=== PATIENT | female | born 2000 | race Hispanic/Latino ===

== ENCOUNTER 2021-12-25 16:34 | Observation (INO) | payer OTHER, MEDICAID ==
[~2021-12-25] VITALS: Ht 160 cm; Wt 77.1 kg
[2021-12-25 16:36] VITALS: BP 126/81
[2021-12-25 17:30] LABS: APPEARANCE,URINE CLEAR (CLEAR); BILIRUBIN,URINE NEGATIVE (NEGATIVE); COLOR,URINE COLORLESS (YELLOW); GLUCOSE, URINE (UA) NEGATIVE (NEGATIVE); KETONES,URINE NEGATIVE (NEGATIVE); LEUKOCYTE ESTERASE ,URINE NEGATIVE Leu/uL (NEGATIVE); NITRATE,URINE NEGATIVE (NEGATIVE); PH,URINE 6.5 (5.0-8.0); PROTEIN,URINE NEGATIVE (NEGATIVE); UROBILINOGEN,URINE 0.2 mg/dL (0.2-1.0)
[2021-12-25 17:38] LABS: BACTERIA,URINE MANY /HPF (None Seen); RBC,URINE 0-1 /HPF (0-1); SQUAMOUS EPITHELIAL CELL,UR RARE /HPF (0-2)
== END 2021-12-25 18:30 | disposition home or self-care (01) ==
LOC: EDH 16:34 → LDH 16:35
PROVIDERS: ADMIT Obstetrics & Gynecology; ATTEND Obstetrics & Gynecology
DX: O12.03 Gestational edema, third trimester (principal); O26.893 Other specified pregnancy related conditions, third trimester; R51.9 Headache, unspecified; R10.9 Unspecified abdominal pain; H53.8 Other visual disturbances; O36.8130 Decreased fetal movements, third trimester, not applicable or unspecified; Z3A.34 34 weeks gestation of pregnancy
CPT/HCPCS: 59025; 81001; G0378 ×2; G0379

== ENCOUNTER 2022-01-08 22:53 | Observation (INO) | payer OTHER, MEDICAID ==
[~2022-01-08] VITALS: Ht 160 cm; Wt 77.6 kg
[2022-01-08 22:55] VITALS: BP 140/85
[2022-01-08 23:40] LABS: APPEARANCE,URINE CLEAR (CLEAR); BILIRUBIN,URINE NEGATIVE (NEGATIVE); COLOR,URINE COLORLESS (YELLOW); GLUCOSE, URINE (UA) NEGATIVE (NEGATIVE); KETONES,URINE 20 mg/dL (NEGATIVE); LEUKOCYTE ESTERASE ,URINE NEGATIVE Leu/uL (NEGATIVE); NITRATE,URINE NEGATIVE (NEGATIVE); OCCULT BLOOD,URINE NEGATIVE (NEGATIVE); PROTEIN,URINE NEGATIVE (NEGATIVE); UROBILINOGEN,URINE 0.2 mg/dL (0.2-1.0)
[2022-01-08 23:50] LABS: BASOPHILS % (AUTO) 0.3 % (0.0-5.0); EOSINOPHILS % (AUTO) 0.9 % (0.0-8.0); HEMATOCRIT 32.2 % (36-48); LYMPHOCYTES % (AUTO) 24.7 % (21.0-51.0); MEAN CORPUSCULAR HEMOGLOBIN 28.1 pg (27.0-33.0); MEAN CORPUSCULAR HGB CONC 33.2 g/dL (32.0-36.0); MEAN CORPUSCULAR VOLUME 84.5 fL (79-99); NEUTROPHILS % (AUTO) 65.5 % (40.0-77.0); PLATELET COUNT (AUTO) 229 K/uL (130-400); RED BLOOD CELL COUNT(AUTO) 3.81 MIL/uL (4.00-5.50); RED CELL DISTRIBUTION WIDTH 13.5 % (11.0-15.5); WHITE BLOOD COUNT (AUTO) 13.9 K/uL (4.8-10.8)
[2022-01-09 00:02] LABS: INR 0.93 (0.85-1.15); PROTHROMBIN TIME 9.8 SEC (9.6-11.6)
[2022-01-09 00:04] LABS: PARTIAL THROMBOPLASTIN TIME 29.3 SEC (26.3-35.5)
[2022-01-09 00:05] LABS: CREATININE 0.5 mg/dL (0.5-1.5); TOTAL PROTEIN, SERUM 6.7 g/dL (6.0-8.3)
== END 2022-01-09 01:30 | disposition home or self-care (01) ==
LOC: EDH 22:53 → LDH 22:54
PROVIDERS: ADMIT Obstetrics & Gynecology; ATTEND Obstetrics & Gynecology
DX: O26.893 Other specified pregnancy related conditions, third trimester (principal); R03.0 Elevated blood-pressure reading, without diagnosis of hypertension; R51.9 Headache, unspecified; O62.9 Abnormality of forces of labor, unspecified; Z3A.36 36 weeks gestation of pregnancy
CPT/HCPCS: 84550; 80053; 85025; 85384; 85610; 85730; 81003; 36415; G0378 ×2; G0379

== ENCOUNTER 2022-01-10 20:23 | Observation (INO) | payer OTHER, MEDICAID ==
[~2022-01-10] VITALS: Ht 160 cm; Wt 79.4 kg
[2022-01-10 20:25] VITALS: BP 138/91
[2022-01-10] MEDS ORDERED: ACETAMINOPHEN 500 MG TABLET PO SCH (21:30)
== END 2022-01-10 22:40 | disposition home or self-care (01) ==
LOC: EDH 20:23 → LDH 20:34
PROVIDERS: ADMIT Obstetrics & Gynecology; ATTEND Obstetrics & Gynecology
DX: O26.893 Other specified pregnancy related conditions, third trimester (principal); R51.9 Headache, unspecified; R03.0 Elevated blood-pressure reading, without diagnosis of hypertension; Z3A.36 36 weeks gestation of pregnancy
CPT/HCPCS: G0378 ×2; G0379

== ENCOUNTER 2022-01-24 06:27 | Inpatient (IN) | payer OTHER, MEDICAID ==
[~2022-01-24] VITALS: Ht 160 cm; Wt 78.9 kg
[2022-01-24] MEDS: OXYTOCIN-LR 20 UNITS/1000 ML 1,000 ML IV SCH (07:00)
[2022-01-24 07:37] LABS: HEMATOCRIT 33.3 % (36-48); MEAN CORPUSCULAR HEMOGLOBIN 28.2 pg (27.0-33.0); MEAN CORPUSCULAR HGB CONC 32.4 g/dL (32.0-36.0); MEAN CORPUSCULAR VOLUME 86.9 fL (79-99); RED BLOOD CELL COUNT(AUTO) 3.83 MIL/uL (4.00-5.50); WHITE BLOOD COUNT (AUTO) 15.2 K/uL (4.8-10.8)
[2022-01-24] MEDS ORDERED: ACETAMINOPHEN 500 MG TABLET PO ONE (08:30)
[2022-01-24] MEDS ORDERED: MEPERIDINE-PF 50 MG/ML SYG IVP PRN (08:30)
[2022-01-24] MEDS ORDERED: NALOXONE HCL 0.4 MG/1 ML ML IV PRN (08:30)
[2022-01-24] MEDS ORDERED: LACTATED RINGERS 500 ML 500 ML IV PRN (08:30)
[2022-01-24] MEDS ORDERED: ROPIVACAINE 0.2% 100ML VIAL 100 ML EP SCH (08:30)
[2022-01-24] MEDS ORDERED: EPHEDRINE SULFATE 50 MG/ML AMPULE IVP PRN (08:30)
[2022-01-24] MEDS ORDERED: PROMETHAZINE HCL 25 MG/ML 1ML AMPULE IM PRN ×2 (08:30→17:30)
[2022-01-24] MEDS ORDERED: OXYTOCIN-LR 20 UNITS/1000 ML 1,000 ML IV SCH (09:00)
[2022-01-24] MEDS ORDERED: AMPICILLIN 2GM+NS 100ML 100 ML IV ONE (09:06)
[2022-01-24] MEDS ORDERED: AMPICILLIN 1GM+NS 50ML 50 ML IV ONE (13:40)
[2022-01-24] MEDS: LACTATED RINGERS 1000ML 1,000 ML IV PRN ×2 (13:49→15:41)
[2022-01-24] MEDS ORDERED: AMPICILLIN 1GM+NS 50ML 50 ML IV SCH (14:30)
[2022-01-24] MEDS ORDERED: FENTANYL CITRATE PF 50 MCG/1 ML 2ML VIAL ONE (14:35)
[2022-01-24] MEDS ORDERED: CALDOLOR 800MG+NS 250ML 250 ML IV ONE (15:10)
[2022-01-24] MEDS ORDERED: CEFAZOLIN SODIUM 2 GM VIAL ONE (15:10)
[2022-01-24] MEDS ORDERED: CALDOLOR 800MG+NS 250ML 250 ML IV PRN (15:30)
[2022-01-24] MEDS ORDERED: CEFAZOLIN SODIUM 2 GM VIAL IVP PRN (15:30)
[2022-01-24] MEDS ORDERED: LIDOCAINE HCL-MPF 2% 10ML AMP IJ ONE (15:36)
[2022-01-24] MEDS ORDERED: CITRIC ACID/SODIUM CITRATE 30 ML UDCUP ONE (15:43)
[2022-01-24] MEDS ORDERED: PHENYLEPHRINE HCL 10 MG/ML 1ML VIAL IV ONE (15:51)
[2022-01-24] MEDS: OXYTOCIN-LR 20 UNITS/1000 ML 1,000 ML IV PRN ×2 (16:16→21:03)
[2022-01-24] MEDS ORDERED: MORPHINE PF 100MG/10ML AMP IV ONE (16:18)
[2022-01-24] MEDS ORDERED: ONDANSETRON 4MG INJ ONE (16:29)
[2022-01-24] MEDS ORDERED: CITRIC ACID/SODIUM CITRATE 30 ML UDCUP PO SCH (16:30)
[2022-01-24] MEDS ORDERED: 0.9%NACL 10ML VIAL IVP PRN (17:30)
[2022-01-24] MEDS ORDERED: MEPERIDINE-PF 75 MG/ML SYG IM PRN (17:30)
[2022-01-24] MEDS ORDERED: DEXTROSE 5 %-0.45 % NACL 1,000 ML IV PRN (17:30)
[2022-01-24 19:30] VITALS: BP 129/83
[2022-01-24 20:38] VITALS: BP 129/86
[2022-01-24] MEDS ORDERED: CALC500T7 PO (20:43)
[2022-01-24] MEDS ORDERED: FERR-82 PO (20:43)
[2022-01-24] MEDS ORDERED: PREN1TAB80 PO (20:43)
[2022-01-24 22:35] VITALS: BP 130/80
[2022-01-25] MEDS: CALDOLOR 800MG+NS 250ML 250 ML IV SCH ×2 (00:44→10:06)
[2022-01-25] MEDS: LORATADINE 10 MG TABLET PO PRN ×2 (00:44→09:16)
[2022-01-25] MEDS ORDERED: ACETAMINOPHEN WITH CODEINE 1 TAB TAB PO PRN ×2 (01:00→09:00)
[2022-01-25 03:03] VITALS: BP 123/80
[2022-01-25 06:48] LABS: HEMATOCRIT 26.9 % (36-48); MEAN CORPUSCULAR HEMOGLOBIN 28.7 pg (27.0-33.0); MEAN CORPUSCULAR HGB CONC 32.7 g/dL (32.0-36.0); MEAN CORPUSCULAR VOLUME 87.6 fL (79-99); RED BLOOD CELL COUNT(AUTO) 3.07 MIL/uL (4.00-5.50); RED CELL DISTRIBUTION WIDTH 14.2 % (11.0-15.5); WHITE BLOOD COUNT (AUTO) 15.2 K/uL (4.8-10.8)
[2022-01-25] MEDS: OXYTOCIN-LR 20 UNITS/1000 ML 1,000 ML IV SCH (07:00)
[2022-01-25 07:40] VITALS: BP 127/88
[2022-01-25] MEDS ORDERED: DIPH,PERTUSS(ACELL),TET VAC/PF 0.5 ML VIAL IM SCH (09:00)
[2022-01-25] MEDS ORDERED: ACETAMINOPHEN 500 MG TABLET PO PRN (09:00)
[2022-01-25] MEDS ORDERED: DOCUSATE SODIUM 100 MG CAP PO SCH (09:00)
[2022-01-25] MEDS ORDERED: SIMETHICONE 80 MG TAB.CHEW PO PRN (09:00)
[2022-01-25] MEDS ORDERED: LANOLIN 30GM OINTMENT TP PRN (09:00)
[2022-01-25] MEDS ORDERED: IBUPROFEN 600 MG TABLET PO PRN (09:00)
[2022-01-25] MEDS ORDERED: HYDROCODONE/ACETAMINOPHEN 5/325 MG TAB PO PRN (09:00)
[2022-01-25] MEDS ORDERED: BISACODYL 10 MG SUPP.RECT RC PRN (09:00)
[2022-01-25] MEDS: CEFAZOLIN SODIUM 2 GM VIAL IVP SCH ×2 (09:16→16:42)
[2022-01-25 09:48] LABS: RAPID PLASMA REAGIN NONREACTIVE (NONREACTIVE)
[2022-01-25 11:27] VITALS: BP 121/79
[2022-01-25 15:38] VITALS: BP 127/83
== END 2022-01-25 18:00 | disposition home or self-care (01) | DRG 788 ==
LOC: EDH 06:27 → LDH 06:28 → OBSVTOIN 06:28 → WSH 22:25
PROVIDERS: ADMIT Obstetrics & Gynecology; ATTEND Obstetrics & Gynecology
PROC: 10D00Z1 Extraction of Products of Conception, Low, Open Approach (ICD-10-PCS; principal; 2022-01-24 15:50)
DX: O42.92 Full-term premature rupture of membranes, unspecified as to length of time between rupture and onset of labor (principal); O99.824 Streptococcus B carrier state complicating childbirth; O62.2 Other uterine inertia; Z3A.38 38 weeks gestation of pregnancy; Z37.0 Single live birth
CPT/HCPCS: 36415; 59510; 85027; 86592; 86701; 86850; 86900; 86901; 87390; 90715; A4314; A4344; G0378; J0290; J1741; J2175; J2274; J2370; J2405; J2550; J2590; J2795; J3010; J3490; J7120

== ENCOUNTER 2022-10-26 16:23 | Observation (INO) | payer OTHER, MEDICAID ==
[~2022-10-26] VITALS: Ht 160 cm; Wt 70.3 kg
[~2022-10-26 16:23] MED LIST: CALC500T7 PO; FERR-82 PO; PREN1TAB80 PO
[2022-10-26 16:24] VITALS: BP 134/75; PULSE 72; RESP 20
[2022-10-26 17:22] LABS: APPEARANCE,URINE CLEAR (CLEAR); BILIRUBIN,URINE NEGATIVE (NEGATIVE); COLOR,URINE COLORLESS (YELLOW); GLUCOSE, URINE (UA) 50 mg/dL (NEGATIVE); KETONES,URINE NEGATIVE (NEGATIVE); LEUKOCYTE ESTERASE ,URINE NEGATIVE Leu/uL (NEGATIVE); NITRATE,URINE NEGATIVE (NEGATIVE); OCCULT BLOOD,URINE NEGATIVE (NEGATIVE); PH,URINE 6.5 (5.0-8.0); PROTEIN,URINE NEGATIVE (NEGATIVE); UROBILINOGEN,URINE 0.2 mg/dL (0.2-1.0)
[2022-10-26 17:28] LABS: ADD UA MICROSCOPIC YES
[2022-10-26 17:29] LABS: RBC,URINE 0-1 /HPF (0-1); SQUAMOUS EPITHELIAL CELL,UR FEW /HPF (0-2); WBC,URINE 0-1 /HPF (0-1)
== END 2022-10-26 17:55 | disposition home or self-care (01) ==
LOC: EDH 16:23 → LDH 16:24
PROVIDERS: ADMIT Obstetrics & Gynecology; ATTEND Obstetrics & Gynecology
DX: O99.891 Other specified diseases and conditions complicating pregnancy (principal); M54.50 Low back pain, unspecified; Z3A.24 24 weeks gestation of pregnancy
CPT/HCPCS: 81001; G0378